=== PATIENT | male | born 1970 | race Caucasian/White ===

== ENCOUNTER 2018-04-21 18:04 | Emergency (ER) | payer BC ==
[2018-04-21] MEDS ORDERED: Amoxicillin/Clavulanate K 875-125 MG Tab PO ONE (18:32)
--- NOTE | 2018-04-21 18:32 | EDM.PDOC ---
ED HPI GENERAL MEDICAL PROBLEM - General Chief Complaint: General Stated Complaint: elbow redness, swelling Time Seen by Provider: 04/21/18 18:15 Source of Information: Reports: Patient, Significant Other. 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 He has also had some occasional mild nonspecific fever and chills, however has not measured his temperature. He did receive a tetanus booster one year ago by his history. Patient did take 400 mg of one hour prior to arrival. No history of foreign body injury, etc. with current psoriasis under moderate control despite aggressive therapy as below. He has had some nonspecific bilateral knee pain with mostly 7/10 left forearm and elbow pain at this time. The patient denies any chest pain/pressure, heart flutter, dizziness, orthostasis, orthopnea, diaphoresis, paresthesias, recent decreased exercise tolerance, or any other anginal-type symptoms. No recent history of abdominal pain, heartburn, nausea, diarrhea, melena, gross hematochezia, or any food intolerance, including fatty foods, etc.. The patient also denies any recent cough, wheezing, dyspnea, etc.. Onset: Gradual Duration: Week(s): (As above), Constant, Getting Worse Location: Reports: Upper Extremity, Left, Lower Extremity, Left, Lower Extremity , Right, Generalized. Denies: Head, Face, Neck, Chest, Abdomen, Back, Pelvis, Radiates to Quality: Reports: Ache, Same as Previous Episode Severity: Moderate Improves with: Reports: None Worsens with: Reports: None Context: Reports: Other (As above). Denies: Sick Contact, Trauma Associated Symptoms: Reports: Fever/Chills, Rash. Denies: Confusion, Chest Pain , Cough, Diaphoresis, Headaches, Loss of Appetite, Malaise, Nausea/Vomiting, Seizure, Shortness of Breath, Syncope, Weakness Treatments REGISTERED TRAVEL NURSE: Reports: NSAIDS Left Elbow Pain Score (Numeric/FACES): 7 Left Knee Pain Score (Numeric/FACES): 7 - Related Data Allergies Allergy/AdvReac Type Severity Reaction Status Date / Time No Known Allergies Allergy Verified 04/21/18 18:10 Home Meds: Home Meds Amoxicillin/Potassium Clav [Augmentin 875-125 Tablet] 1 each PO BIDMEALS #20 tablet 04/21/18 [Rx] Betamethasone Dipropionate [Diprosone 0.05% Crm] 1 applic TOP BID 04/21/18 [ History] Citalopram Hydrobromide [Celexa] 20 mg PO DAILY 04/21/18 [History] Etanercept [Enbrel] 25 mg SQ MOFR 04/21/18 [History] Methotrexate Sodium [Methotrexate] 6 tab PO FR 04/21/18 [History] Propranolol [Inderal] 10 mg PO DAILY 04/21/18 [History] Past Medical History Musculoskeletal History: Reports: Arthritis, Osteoarthritis, Other (See Below). Denies: Gout, RA, SLE Other Musculoskeletal History: Psiarotic arthritis. Neurological History: Reports: Headaches, Chronic, Migraines Psychiatric History: Reports: Addiction, Anxiety, Depression, Psych Hospitalization(s), Other (See Below). 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 Drug addiction as below. Dermatologic History: Reports: Psoriasis Social & Family History - Tobacco Use Smoking Status *Q: Current Every Day Smoker Tobacco Use Within Last Twelve Months: Cigarettes Years of Tobacco use: 31 Packs/Tins Daily: 0.3 Packs/Tins Daily Comment: Started smoking at age 16. Used Tobacco, but Quit: No Smoking Cessation Information Provided To Patient: Yes Smoking Cessation Information Given Comment: Significant other Second Hand Smoke Exposure: Yes Second Hand Smoke Education Provided: Yes - Alcohol Use Alcohol Use History: Yes Days Per Week of Alcohol Use: 7 Number of Drinks Per Day: 5 Number of Drinks Per Day Comment: Usually beer. DWIs 3 last in 2012. No previous alcohol treatment. Total Drinks Per Week: 35 Date of Last Drink: 04/21/18 Alcohol Use in Last Twelve Months: Yes Alcohol Use Frequency: Daily - Recreational Drug Use Recreational Drug Type: Reports: Amphetamines (Speed) (Between ages 24 and 42 with previous treatment as above), Marijuana/Hashish (Daily since age 20 with 5 joints per day), Methamphetamine (As above). 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 ED EXAM, GENERAL - Physical Exam Exam: See Below Exam Limited By: No Limitations General Appearance: Alert, WD/WN, No Apparent Distress Head: Atraumatic, Normocephalic. No: Facial Swelling, Facial Tenderness, Sinus Tenderness Neck: Normal Inspection, Supple, Non-Tender, Full Range of Motion. No: Lymphadenopathy (L), Lymphadenopathy (R) Respiratory/Chest: No Respiratory Distress, Lungs Clear, Normal Breath Sounds, No Accessory Muscle Use, Chest Non-Tender. No: Pleural Rub, Retractions Cardiovascular: Normal Peripheral Pulses, Regular Rate, Rhythm, No Edema, No Gallop, No JVD, No Murmur, No Rub. No: Gallop/S3, Gallop/S4, Friction Rub Peripheral Pulses: 2+: Radial (L), Radial (R) GI/Abdominal: Normal Bowel Sounds, Soft, Non-Tender, No Organomegaly, No Distention, No Abnormal Bruit, No Mass. No: Guarding (Male) Exam: Deferred Rectal (Males) Exam: Deferred Back Exam: Normal Inspection, Full Range of Motion. No: CVA Tenderness (L), CVA Tenderness (R), Muscle Spasm Extremities: Joint Swelling (Mild left elbow swelling/effusion with minimal local warming additional trace erythema of the left forearm. 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 No: Diaphoretic, Lymphangitis Lymphatic: No Adenopathy Course - Vital Signs Last Recorded V/S: Last Vital Signs Temp 37.3 C 04/21/18 18:05 Pulse 81 04/21/18 18:05 Resp 18 04/21/18 18:05 BP 126/65 04/21/18 18:05 Pulse Ox 96 04/21/18 18:05 Vital Signs - 24 hr 04/21/18 18:05 Temperature [ 37.3 C Oral] Pulse, 81 Peripheral [ Left Brachial] Respiratory 18 Rate Blood Pressure 126/65 [Left Upper Arm ] O2 Sat by Pulse 96 Oximetry - Orders/Labs/Meds Labs: None Meds: Medications Discontinued Medications Generic Name Dose Route Start Last Admin Trade Name Freq PRN Reason Stop Dose Admin Amoxicillin/Clavulanate Potassium 1 tab 04/21/18 18:32 04/21/18 18:43 Augmentin 875 Mg/125 Mg PO 04/21/18 18:33 1 tab ONETIME ONE Administration - Radiology Interpretation Free Text/Narrative:: None Departure - Departure Time of Disposition: 18:55 Disposition: Home, Self-Care 01 Condition: Good Clinical Impression: Psoriasis, Peptic reflux disease, Tobacco abuse counseling, Illicit drug use, continuous, Mixed anxiety depressive disorder Cellulitis Qualifiers: Site of cellulitis: extremity Site of cellulitis of extremity: upper extremity Laterality: left Qualified Code(s): L03.114 - Cellulitis of left upper limb Osteoarthritis Qualifiers: Osteoarthritis location: multiple joints Osteoarthritis type: primary Qualified Code(s): M15.0 - Primary generalized (osteo)arthritis - Discharge Information *PRESCRIPTION DRUG MONITORING PROGRAM REVIEWED*: Not Applicable *COPY OF PRESCRIPTION DRUG MONITORING REPORT IN PATIENT AJAY: Not Applicable Prescriptions: Amoxicillin/Potassium Clav [Augmentin 875-125 Tablet] 1 each PO BIDMEALS #20 tablet Instructions: Amoxicillin; Clavulanic Acid tablets, Cellulitis, Adult, Easy-to- Read, Steps to Quit Smoking Referrals: PCP,Unknown [Primary Care Provider] - Forms: ED Department Discharge, ED Return to Work/School Form Additional Instructions: 1. Follow up with your regular provider in 10-14 days as needed, if symptoms persist. Bring these discharge instructions with you to that visit.. 2. Tylenol 650 mg by mouth every 4 hours and/or OTC ibuprofen 2-3 tabs by mouth every 6 hours with food as directed./needed. You may stagger these medications for 48-72 hours only, which essentially means that you are receiving a pain medication about every 2 hours. 3. Antibacterial soap wash/soak with subsequent antibacterial dressing such as Neosporin, etc. as directed 2 times per day until the wound sites completely heals. Keep the area clean and dry with activity restrictions as discussed. Never use hydroperoxide for wound care. 4. Work excuse- See Form 5. Stop all tobacco and marijuana use ROSSY as directed/per provided information and consider contacting [facility]uit [facility], etc.. 6. Immediately after this visit verify that your cellular telephone's voicemail has been activated and is empty. Also verify that your home telephone 's answering machine is operating properly and has space to receive messages. Note that it is sometimes necessary for us to be able to contact you at a later date to discuss your medical care. 7. Please remember that we are ALWAYS here for you and want to answer any questions you may have. Feel free to call the hospital any time and we call you back ROSSY. - Problem List & Annotations (1) Cellulitis SNOMED Code(s): 812146044 Code(s): L03.90 - CELLULITIS, UNSPECIFIED Status: Acute Priority: High Annotation/Comment:: Tetanus booster is up-to-date by his history. Various therapeutic options were discussed with the patient not wishing to have IM Rocephin. Augmentin therapy initiated in the emergency room. Wound care, etc. discussed. Work excuse provided. Compliance with medical therapy strongly encouraged with diarrhea, etc. precautions given. Qualifiers: Site of cellulitis: extremity Site of cellulitis of extremity: upper extremity Laterality: left Qualified Code(s): L03.114 - Cellulitis of left upper limb (2) Osteoarthritis SNOMED Code(s): 453637900 Code(s): M19.90 - UNSPECIFIED OSTEOARTHRITIS, UNSPECIFIED SITE Status: Chronic Priority: High Annotation/Comment:: Likely exacerbation of his psoriatic arthritis, which is currently under aggressive therapy as above. Only low-grade fever at this time with no evidence of significant joint infection. Left elbow effusion is not large enough for aspiration at this time. Note initiation of Augmentin therapy as above. Qualifiers: Osteoarthritis location: multiple joints Osteoarthritis type: primary Qualified Code(s): M15.0 - Primary generalized (osteo)arthritis (3) Psoriasis SNOMED Code(s): 3328901 Code(s): L40.9 - PSORIASIS, UNSPECIFIED Status: Chronic Priority: Medium Annotation/Comment:: Moderate control despite aggressive therapy as above. Continue to observe closely by his political director. (4) Illicit drug use, continuous SNOMED Code(s): 993983675 Code(s): F19.90 - OTHER PSYCHOACTIVE SUBSTANCE USE, UNSPECIFIED, UNCOMPLICATED Status: Chronic Priority: Medium Annotation/Comment:: Continuous daily marijuana use. Patient was congratulated about stopping his methamphetamine use, and he is apparently just been [facility] from [facility]. Emotional support provided. (5) Mixed anxiety depressive disorder SNOMED Code(s): 356879257 Code(s): F41.8 - OTHER SPECIFIED ANXIETY DISORDERS Status: Chronic Priority: Medium Annotation/Comment:: Stable by history and under current medical therapy. (6) Peptic reflux disease SNOMED Code(s): 380714369 Code(s): K21.9 - GASTRO-ESOPHAGEAL REFLUX DISEASE WITHOUT ESOPHAGITIS Status: Chronic Priority: Medium Annotation/Comment:: Stable by history. High-dose ibuprofen to be used with caution. (7) Tobacco abuse counseling SNOMED Code(s): 637527776, 698236932, [id number] Code(s): Z71.6 - TOBACCO ABUSE COUNSELING Status: Chronic Priority: Medium Annotation/Comment:: Tobacco cessation strongly encouraged with information provided. - Problem List Review Problem List Initiated/Reviewed/Updated: Yes - Assessment/Plan Assessment:: As above Plan: As above. Extensive precautions were given to the patient and his significant other, who are in agreement with the treatment plan. See Patient Instructions for further treatment and plan.
== END 2018-04-21 18:50 | disposition home or self-care (01) ==
LOC: LL.ED 18:04
DX: L03.114 Cellulitis of left upper limb (principal); M15.0 Primary generalized (osteo)arthritis; L40.9 Psoriasis, unspecified; F19.90 Other psychoactive substance use, unspecified, uncomplicated; Z71.6 Tobacco abuse counseling; Z79.899 Other long term (current) drug therapy; F32.9 Major depressive disorder, single episode, unspecified; F41.9 Anxiety disorder, unspecified; F17.210 Nicotine dependence, cigarettes, uncomplicated
CPT/HCPCS: 99283; A9270